=== PATIENT | female | born 1965 | race Caucasian/White ===

== ENCOUNTER → 2016-12-11 | Outpatient (CLI) | payer OTHER ==
[~2016-12-11] MED LIST: ATIVAN 0.50.5 MG/TAB PO; CELEXA40 MG PO; CLARITIN 1010 MG/TAB PO; NORCO 325 MG-51 TAB PO; PROAIR HFA0.09 MG/AC; PROBIOTIC FORMU1 CAP PO; PROMETHAZINE V473 M2; SINGULAIR 110 MG/TAB PO; SUDAFED30 MG PO; TESSALON P100 MG/CAP PO
== END ==
LOC: MC.RAD 16:20
DX: Z12.31 Encounter for screening mammogram for malignant neoplasm of breast (principal)

== ENCOUNTER → 2017-12-12 | Outpatient (CLI) | payer BC | LOC: MC.RAD 07:00 | DX: Z12.31 Encounter for screening mammogram for malignant neoplasm of breast (principal) ==

== ENCOUNTER → 2019-03-31 | Outpatient (CLI) | payer BC | LOC: MC.RAD 11:13 | DX: Z12.31 Encounter for screening mammogram for malignant neoplasm of breast (principal) ==

== ENCOUNTER → 2020-04-01 | Outpatient (CLI) | payer BC | LOC: MC.RAD 09:24 | DX: Z12.31 Encounter for screening mammogram for malignant neoplasm of breast (principal) ==

== ENCOUNTER → 2021-04-04 | Outpatient (CLI) | payer BC | LOC: MC.RAD 10:30 | DX: Z12.31 Encounter for screening mammogram for malignant neoplasm of breast (principal) ==

== ENCOUNTER → 2022-05-01 | Outpatient (CLI) | payer BC | LOC: MC.RAD 09:41 | DX: Z12.31 Encounter for screening mammogram for malignant neoplasm of breast (principal) ==

== ENCOUNTER → 2024-06-26 | Outpatient (CLI) | payer BC ==
[~2024-06-26] MED LIST changes: +CARAFATE 1GM1 G PO; +FLONASE NASAL S16 GM NS; +HYZAAR 25 MG-101 TAB PO; +PROBIOTIC BLEN1 EACH PO
== END ==
LOC: MC.RAD 09:54
DX: Z01.419 Encounter for gynecological examination (general) (routine) without abnormal findings (principal); Z12.31 Encounter for screening mammogram for malignant neoplasm of breast